=== PATIENT | male | born 1985 | race Caucasian/White ===

== ENCOUNTER 2018-02-01 14:00 | Emergency (ER) | END 2018-02-01 15:24 | disposition home or self-care (01) ==

== ENCOUNTER 2018-03-19 12:03 | Emergency (ER) | END 2018-03-19 14:27 | disposition home or self-care (01) ==

== ENCOUNTER 2018-09-30 16:15 | Emergency (ER) | payer OTHER ==
[~2018-09-30] VITALS: Ht 172.7 cm; Wt 100.0 kg
[~2018-09-30 16:15] MED LIST: BACL10TA PO; HYDR-4011 PO; NAPR-985 PO; PRED20TA PO
[2018-09-30 16:21] VITALS: Ht 172.7 cm; Wt 100.0 kg
[2018-09-30] MEDS ORDERED: KETOROLAC 30 MG INJ IV STA (16:46)
[2018-09-30] MEDS ORDERED: morphine 4 MG/ML VIAL IV STA (16:46)
[2018-09-30] MEDS ORDERED: METHYLPREDNISOLONE 125 MG INJ IV ONE (17:00)
[2018-09-30] MEDS ORDERED: DIAZEPAM 5 MG/ML SYG IV ONE (17:00)
--- NOTE | 2018-09-30 17:04 | ERD ---
ER Documentation Chief Complaint Chief Complaint right back pain radiatinf to right leg HPI History of Present Illness: 32-year-old male who denies a past medical history coming in today with complaint of right upper extremity pain. Patient reports a history of sciatica in which he had last exacerbation at the end of 2018. Patient reports that onset has been since yesterday, worsening. At home pharmacological/nonpharmacological treatment for symptoms: Denies social concerns; Denies recent foreign travel ROS All systems reviewed and are negative except as per history of present illness. Medications Home Meds Active Scripts Prednisone* (Prednisone*) 20 Mg Tab, 40 MG PO WITH BREAKFAST for SCIATICA FLAREUP for 4 Days, TAB Prov:SAMMY MARIA NP 09/30/18 Cyclobenzaprine Hcl* (Cyclobenzaprine Hcl*) 10 Mg Tablet, 10 MG PO Q8 PRN for MUSCLE SPASM/SCIATICA FLAREUP, #20 TAB Prov:SAMMY MARIA NP 09/30/18 Ibuprofen* (Motrin*) 800 Mg Tab, 800 MG PO Q6H PRN for PAIN AND INFLAMMATION, #30 TAB TAKE EVERY 6 HOURS FOR THE NEXT 3 DAYS TO HELP WITH SCIATICA FLARE UP. AFTER 3 DAYS, THEN TAKE NEEDED. TAKE WITH FOOD TO PREVENT UPSET STOMACH. Prov:SAMMY MARIA NP 09/30/18 Hydrocodone/Acetaminophen ([place] 5-325 Tablet) 1 Each Tablet, 1 TAB PO Q6H PRN for MODERATE-SEVERE PAIN, #7 TAB Prov:SAMMY MARIA NP 09/30/18 Naproxen* (Naprosyn*) 500 Mg Tablet, 500 MG PO BID PRN for PAIN AND/OR INFLAMMATION, #30 TAB Prov:KRYSTYNA GALAN PA-C 03/19/18 Hydrocodone/Acetaminophen ([place] 5-325 Tablet) 1 Each Tablet, 1 TAB PO Q6H PRN for PAIN, #7 TAB Prov:KRYSTYNA GALAN PA-C 03/19/18 Prednisone* (Prednisone*) 20 Mg Tab, 40 MG PO DAILY for 4 Days, TAB Prov:KRYSTYNA GALAN PA-C 03/19/18 Baclofen* (Baclofen*) 10 Mg Tablet, 10 MG PO BID, #14 TAB Prov:MADINA KING MD 02/01/18 Hydrocodone/Acetaminophen ([place] 5-325 Tablet) 1 Each Tablet, 1 TAB PO BID PRN for PAIN, #14 TAB Prov:MADINA KING MD 02/01/18 Prednisone* (Prednisone*) 20 Mg Tab, 40 MG PO DAILY for 4 Days, TAB Prov:MADINA KING MD 02/01/18 Reported Medications [None] No Conflict Check 01/26/12 Allergies Allergies: Coded Allergies: No Known Allergy (Unverified , 03/19/18) PMhx/Soc History of Surgery: No Anesthesia Reaction: No Hx Neurological Disorder: No Hx Respiratory Disorders: No Hx Cardiac Disorders: No Hx Psychiatric Problems: No Hx Miscellaneous Medical Probl: No Hx Alcohol Use: Yes Hx Substance Use: No Hx Tobacco Use: Yes FmHx Family History: No diabetes, No coronary disease Physical Exam Vitals Vital Signs Date Temp Pulse Resp B/P (MAP) Pulse Ox O2 O2 Flow FiO2 Time Delivery Rate 09/30/18 98.1 111 18 123/65 96 Room Air 18:01 (84) 09/30/18 110 17 124/68 100 Room Air 17:36 (86) 09/30/18 97.6 127 20 189/97 98 16:21 (127) Physical Exam Const: No acute distress Head: Atraumatic Eyes: Normal Conjunctiva ENT: Normal External Ears, Nose and Mouth. Neck: Full range of motion. No meningismus. Resp: Clear to auscultation bilaterally Cardio: Regular rate and rhythm, no murmurs Abd: Soft, non tender, non distended. Normal bowel sounds Skin: No petechiae or rashes Back: No midline or flank tenderness; TTP from hip to back of posterior right lower extremity, + straight leg raise Ext: No cyanosis, or edema Neur: Awake and alert, no focal neuro deficits Psych: Normal Mood and Affect Results 24 hrs Current Medications Medications Dose Sig/Vicky Start Time Status Last (Trade) Ordered Route PRN Stop Time Admin Dose Reason Admin Ketorolac 30 mg ONCE STAT 09/30/18 DC 09/30/18 Tromethamine IV 16:46 17:03 (Toradol) 09/30/18 16:52 Diazepam 10 mg ONCE ONCE 09/30/18 DC 09/30/18 (Valium) IV 17:00 17:16 09/30/18 17:01 125 mg ONCE ONCE 09/30/18 DC 09/30/18 Methylprednis IV 17:00 17:02 olone Sodium 09/30/18 17:01 Succinate (Solu-Medrol) Morphine 4 mg ONCE STAT 09/30/18 DC 09/30/18 Sulfate IV 16:46 17:03 (morphine) 09/30/18 16:52 Procedures/MDM ED course includes a thorough examination and history. Medications: Valium, Ketorolac, Morphine, Methylprednisolone Imaging: did not feel like it was warranted Labs: did not feel like it was warranted Low suspicion for life-threatening medical emergency. I have low suspicion for cauda equina, discitis, epidural abscess, acute fracture, dislocation. I have low suspicion for neuro deficit. Otherwise healthy patient presenting with constellation of symptoms likely representing exacerbation of sciatica as characterized by history, physical exam findings [, radiologic/lab findings]. Patient reassessment 1745: Patient no longer hypertensive. Pain decreased from 8/4. No physical signs of pain, patient asleep upon my arrival to room but agustin kens to voice. Patient hemodynamically stable. No respiratory distress, otherwise relatively well appearing and nontoxic. Disposition given. Patient educated on diagnoses, prescriptions, follow-up care, return precautions. Strict return precautions given for worsening condition; questions answered discharge. Verbalizes understanding of discharge instructions. Disposition for discharge with followup in 2 days with PCP/clinic. Departure Diagnosis: Primary Impression: Sciatica of right side Condition: Stable SAMMY MARIA NP Sep 30, 2018 17:03
[2018-09-30] MEDS ORDERED: HYDR-4011 PO (17:49)
[2018-09-30] MEDS ORDERED: PRED20TA PO (17:49)
[2018-09-30] MEDS ORDERED: IBUP800T48 PO (17:49)
[2018-09-30] MEDS ORDERED: CYCL10TA7 PO (17:49)
[2018-09-30 18:01] VITALS: BP 123/65; PULSE 111; RESP 18
== END 2018-09-30 18:02 | disposition home or self-care (01) ==
LOC: FTE 16:15
DX: M54.31 Sciatica, right side (principal); Z87.891 Personal history of nicotine dependence
CPT/HCPCS: 96374; 96375; J1885; J2270; J2930; J3360; Z7502